=== PATIENT | female | born 1975 | race Caucasian/White ===

== ENCOUNTER 2017-08-29 16:03 | Emergency (ER) | payer MEDICAID ==
[~2017-08-29] VITALS: Ht 157.5 cm; Wt 70.9 kg
[~2017-08-29 16:03] MED LIST: [UNRECOGNIZED DRUG - REMARK]
[2017-08-29 16:05] VITALS: Ht 157.5 cm; Wt 70.9 kg
[2017-08-29] MEDS ORDERED: KETOROLAC 60 MG INJ IM STA (16:26)
--- NOTE | 2017-08-29 17:15 | RADRPT ---
PROCEDURE: XR Ankle. CLINICAL INDICATION: Right foot and ankle injury. TECHNIQUE: AP, oblique, and lateral views of the right ankle were performed. COMPARISON: None. FINDINGS: The osseous structures are intact with no evidence of fracture or subluxation. The ankle mortise is well maintained. Very mild soft tissue swelling is seen along the lateral malleolus. There is a sm all plantar calcaneal spur. A small enthesophyte is seen at the Achilles insertion site. IMPRESSION: 1. No evidence of acute fracture or subluxation of the right ankle. 2. Mild soft tissue swelling along the lateral malleolus. 3. Calcaneal spurs along the plantar surface and Achilles insertion site. RPTAT: [facility] .Uma Klein MD, MD Date Time Electronically viewed and signed by .Uma Klein MD, on 08/29/2017 17:15 .H/
--- NOTE | 2017-08-29 17:15 | RADRPT ---
PROCEDURE: XR Foot. CLINICAL INDICATION: Injury. TECHNIQUE: Right foot, three views. COMPARISON: None. FINDINGS: The bone mineralization is age appropriate. There is no acute fracture or dislocation. Osseous alignment appears maintained. Tiny os naviculare is noted. There is no significant joint space narrowing. There are no significant degenerative changes. There is a small distal Achilles tendon enthesophyte. There is a small plantar calcaneal spur. IMPRESSION: No acute fracture or dislocation of the right foot. RPTAT: [facility] Rudy Caballero Physician Date Time Electronically viewed and signed by Rudy Caballero Physician on 08/29/2017 17:14 PH/
[2017-08-29] MEDS ORDERED: IBUP-1542 PO (17:44)
--- NOTE | 2017-08-29 18:42 | ERD ---
ER Documentation Chief Complaint Chief Complaint Complains of right ankle foot pain since this am HPI 42-year-old female patient with no significant past medical history presents to the ED complaining of right heel and right ankle pain that started intermittently for the past 2 weeks. Patient reports that there was an uneven pavement and accidentally tripped and twisted her right ankle and foot. Reports that she has not been evaluated for this pain. Denies any loss of sensation, loss of range of motion, fever, chills, weakness. Reports that when she walks on her feet, it is more painful. Patient's son helped interpret at this time. ROS All systems reviewed and are negative except as per history of present illness. Medications Home Meds Active Scripts Ibuprofen* (Motrin*) 600 Mg Tab, 600 MG PO Q6, #30 TAB take with food Prov:MAGY ALCOCER PA-C 08/29/17 Reported Medications [denies meds & allergies.] No Conflict Check 08/17/13 Allergies Allergies: Coded Allergies: No Known Drug Allergy (Verified Allergy, Unknown, 08/17/13) PMhx/Soc Medical and Surgical Hx: pt denies Medical Hx, pt denies Surgical Hx History of Surgery: No Anesthesia Reaction: No Hx Neurological Disorder: No Hx Respiratory Disorders: No Hx Cardiac Disorders: No Hx Psychiatric Problems: No Hx Miscellaneous Medical Probl: No Hx Alcohol Use: No Hx Substance Use: No Hx Tobacco Use: No Smoking Status: Never smoker Physical Exam Vitals Vital Signs Date Time Temp Pulse Resp B/P Pulse Ox O2 Delivery O2 Flow Rate FiO2 08/29/17 16:05 98.6 89 20 141/92 98 Physical Exam Const: [id number], well-nourished. In no acute distress. Head: Atraumatic, normocephalic Eyes: Normal Conjunctiva without injection ENT: Normal external ear, nose and mouth. Neck: Full range of motion. No meningismus. Resp: Clear to auscultation bilaterally. No wheezing, rhonchi, rales, or crackles. No accessory muscle use. No retractions. Cardio: Regular rate and rhythm, no murmurs Skin: No petechiae or rashes Back: No midline tenderness. No CVA tenderness. Ext: No cyanosis, or edema. Cap refill less than 2 seconds. Distal pulses intact bilaterally. Tenderness palpation of the right heel. Tenderness palpation of the right lateral malleolus. Limited range of motion due to pain. Negative Hussein's test. No erythema. No deformities. Neur: Awake and alert. Normal gait and coordination. Muscle strength 5/5. Sensation intact bilaterally. Psych: Normal Mood and Affect Results 24 hrs Current Medications Medications (Trade) Dose Ordered Sig/Blake Route PRN Reason Start Time Stop Time Status Last Admin Dose Admin Ketorolac Tromethamine (Toradol) 60 mg ONCE STAT IM 08/29/17 16:26 08/29/17 16:29 DC 08/29/17 16:42 Procedures/MDM 42 year-old female patient with no significant past medical history presents to the ED complaining of right ankle, right foot pain after actually twisting her foot 2 weeks ago. Patient is afebrile nontoxic appearing. Patient has normal vital signs. A right ankle and right foot x-ray was ordered to further evaluate patient. PROCEDURE: XR Ankle. CLINICAL INDICATION: Right foot and ankle injury. TECHNIQUE: AP, oblique, and lateral views of the right ankle were performed. COMPARISON: None. FINDINGS: The osseous structures are intact with no evidence of fracture or subluxation. The ankle mortise is well maintained. Very mild soft tissue swelling is seen along the lateral malleolus. There is a small plantar calcaneal spur. A small enthesophyte is seen at the Achilles insertion site. IMPRESSION: 1. No evidence of acute fracture or subluxation of the right ankle. 2. Mild soft tissue swelling along the lateral malleolus. 3. Calcaneal spurs along the plantar surface and Achilles insertion site. PROCEDURE: XR Foot. CLINICAL INDICATION: Injury. TECHNIQUE: Right foot, three views. COMPARISON: None. FINDINGS: The bone mineralization is age appropriate. There is no acute fracture or dislocation. Osseous alignment appears maintained. Tiny os naviculare is noted. There is no significant joint space narrowing. There are no significant degenerative changes. There is a small distal Achilles tendon enthesophyte. There is a small plantar calcaneal spur. IMPRESSION: No acute fracture or dislocation of the right foot. Patient is placed in an rebeca wrap. Crutches were given to patient to help with ambulation. Splint Assessment: Neurovascularly intact pre and post splint placement with good fit. Differentials include ankle/foot sprain. Patient's extremity symptoms have stabilized while they have been evaluated in the department and are appropriate for outpatient follow up. No evidence of fractures, dislocations, compartment syndrome, neurologic injury, vascular injury, open joint, open fracture, tendon laceration, septic arthritis, osteomyelitis, DVT, foreign body, or other emergent conditions. Discharge medications: Ibuprofen Follow up with primary care physician in 1-2 days for a referral to orthopedic physician for further evaluation and treatment. Instructed patient to return to the ED sooner for any worsening symptoms. Patient's questions were answered. Patient understood and agreed with discharge plan. Patient discharged stable. Departure Diagnosis: Primary Impression: Foot pain Laterality: right Qualified Code: M79.671 - Right foot pain Additional Impression: Ankle pain Chronicity: acute Laterality: right Qualified Code: M25.571 - Acute right ankle pain Condition: Stable Patient Instructions: Sprain, Ankle, With X-Ray, Sprain Foot, Heel Spur Referrals: [facility] YOU HAVE RECEIVED A MEDICAL SCREENING EXAM AND THE RESULTS INDICATE THAT YOU DO NOT HAVE A CONDITION THAT REQUIRES URGENT TREATMENT IN THE EMERGENCY DEPARTMENT. FURTHER EVALUATION AND TREATMENT OF YOUR CONDITION CAN WAIT UNTIL YOU ARE SEEN IN YOUR DOCTORS OFFICE WITHIN THE NEXT 1-2 DAYS. IT IS YOUR RESPONSIBILITY TO MAKE AN APPOINTMENT FOR [facility]. IF YOU HAVE A PRIMARY DOCTOR --you should call your primary doctor and schedule an appointment IF YOU DO NOT HAVE A PRIMARY DOCTOR YOU CAN CALL OUR PHYSICIAN REFERRAL HOTLINE AT IF YOU CAN NOT AFFORD TO SEE A PHYSICIAN YOU CAN CHOSE FROM THE FOLLOWING ON LICENSE OF [facility] CL[facility] [address] [facility]. [facility] [address] [facility] [place] [address] [facility] [address] [facility]. [facility] [address] [facility]. [facility]. [address] [facility] YOU HAVE RECEIVED A MEDICAL SCREENING EXAM AND THE RESULTS INDICATE THAT YOU DO NOT HAVE A CONDITION THAT REQUIRES URGENT TREATMENT IN THE EMERGENCY DEPARTMENT. FURTHER EVALUATION AND TREATMENT OF YOUR CONDITION CAN WAIT UNTIL YOU ARE SEEN IN YOUR DOCTORS OFFICE WITHIN THE NEXT 1-2 DAYS. IT IS YOUR RESPONSIBILITY TO MAKE AN APPOINTMENT FOR [facility]. IF YOU HAVE A PRIMARY DOCTOR --you should call your primary doctor and schedule and appointment IF YOU DO NOT HAVE A PRIMARY DOCTOR YOU CAN CALL OUR PHYSICIAN REFERRAL HOTLINE AT . IF YOU CAN NOT AFFORD TO SEE A PHYSICIAN YOU CAN CHOSE FROM THE FOLLOWING [facility] INSTITUTIONS: [facility] [address] [place] [address] [facility] [address] [place] [address] [facility] [address] [place] [address] [facility]RGENT C[facility]/SPECIALTIES [facility] C[facility] Urgent Care 7 a.m.- 11 p.m. Every Day of the Week NO APPOINTMENT OR AUTHORIZATION NEEDED [facility] Hours: Mon-Fri 9:00 AM - 5:00 PM Additional Instructions: Visite a walker mdico maana para un EXAMEN para la evaluacin y el tratamiento adicionales de un mdico ortopdico. Regrese a estas instalaciones si no se mejora jeff esperbamos o jeff le dijimos. MAGY ALCOCER PA-C Aug 29, 2017 18:40
== END 2017-08-29 18:00 | disposition home or self-care (01) ==
LOC: FTE 16:03
DX: M79.671 Pain in right foot (principal)
CPT/HCPCS: 73610; 73630; 96372; J1885; Z7502